=== PATIENT | female | born 1945 | race Caucasian/White ===

== ENCOUNTER 2019-03-22 08:32 | Emergency (ER) | payer MEDICARE ==
--- OUTSIDE RECORDS SUMMARY | 2019-03-22 08:49 | XMS REPORT | Continuity of Care Document ---
:1945 External Reference #:[id number] Author Name Nan Power N.P. (transmitted by agent of provider Anaid Arboleda) Address [address], [place] [address] Care Team Providers Name Role Phone Carrie Gibbons MD - Internal Care Team Information Generation Engineering Technologist [phone] Medicine Other Physician Practices Care Team Information Generation Engineering Technologist Unavailable Problems Active Problems Provider Date Pure hypercholesterolemia Estephania Zuniga M.D., FACP Onset: 10/08/2010 Essential hypertension Nan Power N.POsvaldo Onset: 04/04/2015 Social History Type Date Description Comments Sex Unknown ETOH Use Currently consumes 1 glass wine per week alcohol Tobacco Use Start: Unknown Patient has never smoked Smoking Status Reviewed: 03/15/19 Patient has never smoked Exercise Exercises regularly Type/Frequency Allergies, Adverse Reactions, Alerts Active Allergies Reaction Severity Comments Date Sulfa hives and swelling 06/01/2010 Medications Active Medications SIG Qnty Indications Ordering Provider Date Citalopram 1 by mouth every 90tabs F41.1 Nan Power, 03/15/2019 Hydrobromide day N.P. 20mg Tablets Clonazepam take 1/2 to 1 20tabs F41.1 Lana Castro MD 09/22/2018 0.5mg Tablets tablet as needed anxiety and sleep Shingrix to be given 1units Z00.00 Nan Power, 09/07/2017 50mcg Suspension intramuscular, N.P. Rec repeat dose in 2 months Metoprolol Succinate 1 by mouth every 90tabs Nan Power, 10/11/2012 ER day N.P. 50mg Tablets ER 24HR Zolpidem Tartrate 1 tab at bedtime 20tabs Nan Power, 11/11/2010 5mg as needed for N.P. Tablets sleep Lipitor 1 by mouth at 90tabs Nan Power, 10mg Tablets bedtime N.P. Co Q10 Maximum every day Unknown Strength 200mg Capsules History Medications Escitalopram Oxalate 1 by mouth 90tabs F41.1 Nan Mooneyn, 09/22/2018 - 20mg every day N.P. 03/15/2019 Tablets Medications Administered in Office Medication SIG Qnty Indications Ordering Provider Date Depomedrol 40MG Clare Marker, RPA-C 10/06/2017 Injection Immunizations CPT Code Status Date Vaccine Reaction Lot # [id number] Given 02/17/2019 Fluzone High Dose [id number] Given 09/11/2018 Tdap - No immediate reaction [id number] Tetanus/Diptheria/Acellular Pertussis 01032 Given 02/11/2018 Influenza Virus Vaccine, Quadrivalent, Split, Preservative Free 69219 Given 03/09/2017 Influenza Virus Vaccine, Quadrivalent, Split, Preservative Free 39582 Given 03/09/2017 Fluzone High Dose Q2039 Given 02/17/2016 Flu Vaccine NOS 01673 Given 04/04/2015 Pneumococcal Conjugate [id number] Vaccine 13 Valent For Intramuscular Use Q2039 Given 02/14/2015 Flu Vaccine NOS 80026 Given 01/31/2014 Fluzone High Dose Q2035 Given 01/06/2013 Afluria Vaccine 14777 Given 01/25/2011 Influenza Virus 3Yrs & Over 27391 Given 10/08/2010 Pneumonia Vaccine [id number] 70233 Given 05/07/2009 Influenza Virus Vaccine, Pandemic Formulation 00017 Given 05/07/2009 Administration Swine Flu Shot 63207 Given 09/19/2008 Zoster (Zostavax) 35250 Given 09/19/2008 Tdap - Tetanus/Diptheria/Acellular Pertussis Vital Signs Date Vital Result Comment 03/15/2019 8:33am Height 64 inches 5'4" Weight 197.50 lb Heart Rate 58 /min BP Systolic Sitting 168 mmHg BP Diastolic Sitting 80 mmHg O2 % BldC Oximetry 98 % BMI (Body Mass Index) 33.9 kg/m2 09/22/2018 10:45am Height 64 inches 5'4" Weight 181.38 lb Heart Rate 69 /min BP Systolic 152 mmHg BP Diastolic 80 mmHg Body Temperature 97.9 F O2 % BldC Oximetry 98 % BMI (Body Mass Index) 31.1 kg/m2 Results Description No Information Available Procedures Date Code Description Status 04/12/2012 307261646 Bone Mineral Density Test Completed 11/05/2010 67711597 Colonoscopy Completed 10/14/2010 [id number] Bone Mineral Density Test Completed 11/30/2005 207716051 Bone Mineral Density Test Completed 11/11/2005 243705453 Bone Mineral Density Test Completed Medical Devices Description No Information Available Encounters Type Date Location Provider Dx Diagnosis Office Visit 09/22/2018 [facility] Internal Nan Power, F41.1 Generalized anxiety 10:40a Medicine - [facility] N.P. disorder G47.00 Insomnia, unspecified Assessments Date Code Description Provider 03/15/2019 I10 Essential (primary) hypertension Nan Power, N.P. 03/15/2019 F41.1 Generalized anxiety disorder Nan Power, N.P. 03/15/2019 M17.11 Unilateral primary osteoarthritis, right knee Nan Power, N.P. 03/15/2019 M79.672 Pain in left foot Nan Power, N.P. 09/22/2018 F41.1 Generalized anxiety disorder Nan Power, N.P. 09/22/2018 G47.00 Insomnia, unspecified Nan Power, N.P. 09/13/2018 R35.0 Frequency of micturition Nan Power, N.P. Plan of Treatment Future Appointment(s):09/13/2019 9:00 am - Nan Power, N.P. at [facility] Internal [facility]03/15/2019 - Nan Power, N.P.I10 Essential (primary) hypertensionComments:For your high blood pressure: Continue with your current medication. I would like you to continue to monitor your blood pressure at home. If you find your readings are consistently elevated over 140/90, please give the office a call.F41.1 Generalized anxiety disorderNew Medication: Citalopram Hydrobromide 20 mg - 1 by mouth every dayComments:For your anxiety I have changed your medication back Citalopram 20 mg. Take 1 tablet daily.M17.11 Unilateral primary osteoarthritis, right kneeComments:I think it's fine to use CBD oil if it helps with your pain. I want to check your liver and kidney function in another month.M79.672 Pain in left footComments:To further evaluate the pain in your heel I have ordered an Xray. I will contact yo with your results. Functional Status Description No Information Available Mental Status Description No Information Available Referrals Description No Information Available
[2019-03-22 09:44] LABS: Urine Appearance Cloudy; Urine Bacteria Absent (Absent); Urine Bilirubin Negative (Negative); Urine Blood 3+ (Negative); Urine Glucose Negative (Negative); Urine Ketones Negative (Negative); Urine Nitrite Negative (Negative); Urine Protein 1+(30 mg/dL) (Negative); Urine Red Blood Cell 3+(>10/hpf) (Absent); Urine Specific Gravity 1.009 (1.010-1.030); Urine Squamous Epithelial Cell Present (Absent); Urine Urobilinogen Negative (Negative); Urine White Blood Cell 3+(>20/hpf) (Absent)
[2019-03-22 09:45] LABS: Urine Color Amber
--- NOTE | 2019-03-22 09:55 | ED ---
GI/ HPI - HPI Summary HPI Summary: 73-year-old female presents with dysuria for the past 2 days. She admits to urgency frequency. She states that she doesn't feel like she is retaining urine. States she's been having twinges of flank pain but does not have any currently. Denies fevers. No nausea and vomiting. Has history of UTIs but has never had hematuria. Denies vaginal discharge or bleeding. She has been drinking a lot of water. No history kidney stones. Has some medical conditions. - History of Current Complaint Chief Complaint: EDUrogenitalProblems Time Seen by Provider: 03/22/19 09:17 Stated Complaint: BLOOD IN URINE PER PT Pain Intensity: 0 - Allergy/Home Medications Allergies/Adverse Reactions: Allergies Allergy/AdvReac Type Severity Reaction Status Date / Time MS Sulfa Drugs [Sulfa Drugs] Allergy Unknown Anaphylatic Verified 03/22/19 08:41 Shock Home Medications: Home Medications Atorvastatin* [Lipitor*] 10 mg PO DAILY 03/22/19 [History Confirmed 03/22/19] Citalopram TAB* [CeleXA TAB*] 20 mg PO DAILY 03/22/19 [History Confirmed ] Metoprolol Tartrate TAB* [Lopressor TAB*] 50 mg PO DAILY 03/22/19 [History Confirmed 03/22/19] PMH/Surg Hx/FS Hx/Imm Hx Endocrine/Hematology History: Denies: Hx Anticoagulant Therapy Cardiovascular History: Reports: Hx Hypertension - white coat Musculoskeletal History: Denies: Hx Rheumatoid Arthritis, Hx Osteoporosis - Surgical History Surgery Procedure, Year, and Place: BI-LAT HIP REPLACEMENTS Infectious Disease History: No Infectious Disease History: Denies: Traveled Outside the [place] in Last 30 Days - Family History Known Family History: Positive: Non-Contributory - Social History Alcohol Use: Daily Alcohol Amount: wine Substance Use Type: Reports: None Smoking Status (MU): Never Smoked Tobacco Review of Systems Negative: Fever Negative: Chest Pain Negative: Shortness Of Breath Positive: Abdominal Pain. Negative: Vomiting, Diarrhea, Nausea Positive: dysuria, flank pain, hematuria All Other Systems Reviewed And Are Negative: Yes Physical Exam Triage Information Reviewed: Yes Vital Signs On Initial Exam: Initial Vitals Temp Pulse Resp BP Pulse Ox 98.1 F 64 16 194/82 95 03/22/19 08:37 03/22/19 08:37 03/22/19 08:37 03/22/19 08:37 03/22/19 08:37 Vital Signs Reviewed: Yes Appearance: Positive: Well-Appearing Skin: Positive: Warm, Dry Head/Face: Positive: Normal Head/Face Inspection Eyes: Positive: Normal, Conjunctiva Clear ENT: Positive: Pharynx normal Respiratory/Lung Sounds: Positive: Clear to Auscultation, Breath Sounds Present Cardiovascular: Positive: Normal, RRR Abdomen Description: Positive: Soft, Other: - suprapubic pain. Negative: CVA Tenderness (R), CVA Tenderness (L) Bowel Sounds: Positive: Present Musculoskeletal: Positive: Normal Neurological: Positive: Normal Psychiatric: Positive: Normal Procedures - Sedation Patient Received Moderate/Deep Sedation with Procedure: No Diagnostics - Vital Signs Vital Signs Temp Pulse Resp BP Pulse Ox 03/22/19 08:37 98.1 F 64 16 194/82 95 - Laboratory Lab Results: Lab Results 03/22/19 Range/Units 08:50 Urine Color Tanja Urine Appearance Cloudy Urine pH 6.0 (5-9) Ur Specific Pattison 1.009 L (1.010-1.030) Urine Protein 1+(30 mg/dl) A (Negative) Urine Ketones Negative (Negative) Urine Blood 3+ A (Negative) Urine Nitrate Negative (Negative) Urine Bilirubin Negative (Negative) Urine Urobilinogen Negative (Negative) Ur Leukocyte Esterase 3+ A (Negative) Urine WBC (Auto) 3+(>20/hpf) A (Absent) Urine RBC (Auto) 3+(>10/hpf) A (Absent) Ur Squamous Epith Cells Present A (Absent) Urine Bacteria Absent (Absent) Urine Glucose Negative (Negative) Lab Statement: Any lab studies that have been ordered have been reviewed, and results considered in the medical decision making process. 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 No hydronephrosis of either kidney. GIGU Course/Dx - Course Course Of Treatment: 73-year-old female presents with dysuria for the past 2 days. She admits to urgency frequency. She states that she doesn't feel like she is retaining urine. States she's been having twinges of flank pain but does not have any currently. Denies fevers. No nausea and vomiting. Has history of UTIs but has never had hematuria. Denies vaginal discharge or bleeding. She has been drinking a lot of water. No history kidney stones. Has some medical conditions. On exam mild lower abdomen. nontender flanks.vitals stable expect bp elevated which patient states has history of white coat hypertension. Has some suprapubic tenderness. Urine shows UTI. Ultrasound shows renal cyst and angiomyolipoma. will treat with augmentin. told to follow up with primary about u/s findings for surveillance and about blood pressure. told if develop fever or vomiting to return. patient understand and agrees with plan. - Diagnoses Differential Diagnoses - Female: Pyelonephritis, Urinary Tract Infection, Ureteral Calculi Provider Diagnoses: UTI (urinary tract infection) Discharge ED - Sign-Out/Discharge Documenting (check all that apply): Patient Departure - Discharge Plan Condition: Good Disposition: HOME Prescriptions: Amoxicillin/Clavulanate TAB* [Augmentin TAB 500 mg*] 500 mg PO BID #9 tab Phenazopyridine 200 mg (NF) [Pyridium 200 MG tab *] 200 mg PO TID #5 tab Patient Education Materials: Urinary Tract Infection in Women (ED) Referrals: Nan Power NP [Primary Care Provider] - Additional Instructions: Take augmentin twice a day for 5 days, first dose given in ED Take pyridium 1 tablet three times a day with food for 2 days, first dose given in ED drink plenty of fluids Follow up with primary in 7 days Return to ED if develop fever, vomiting or any new or worsening symptoms - Billing Disposition and Condition Condition: GOOD Disposition: Home
[2019-03-22] MEDS: Phenazopyridine TAB* 100 MG PO ONE (10:40)
[2019-03-22] MEDS: Amoxicillin/Clavulanate TAB* 500 MG PO ONE (10:40)
[2019-03-22 11:09] VITALS: BP 180/78
== END 2019-03-22 11:06 | disposition home or self-care (01) ==
LOC: ED 08:32
DX: N39.0 Urinary tract infection, site not specified (principal); I10 Essential (primary) hypertension; Z96.643 Presence of artificial hip joint, bilateral; Z79.899 Other long term (current) drug therapy; Z88.2 Allergy status to sulfonamides; N28.1 Cyst of kidney, acquired
CPT/HCPCS: 76775; 81003; 81015; 87086; 99282; A9270-GY